=== PATIENT | male | born 1975 | race American Indian/Alaskan Native ===

== ENCOUNTER 2020-01-31 10:13 | Emergency (ER) | payer OTHER ==
[2020-01-31 10:36] LABS: Hematocrit 48.6 % (35.5-45.6); Mean Corpuscular HGB Conc 35 % (32-34); Mean Corpuscular Volume 90 fl (84-94); Platelet Count 160 K/mm3 (140-440); Red Blood Count 5.43 M/mm3 (3.65-5.03); Red Cell Distribution Width 12.8 % (13.2-15.2)
[2020-01-31 10:56] LABS: BUN/Creatinine Ratio 12; Blood Urea Nitrogen 16 mg/dL (9-20); Calcium 9.9 mg/dL (8.4-10.2); Hemolysis Index 20
--- NOTE | 2020-01-31 10:58 | XRay Report ---
CHEST 2 VIEWS INDICATION: Chest Pain. COMPARISON: None. FINDINGS: Support devices: None. Heart: Within normal limits. Lungs/Pleura: No acute air space or interstitial disease. No significant pleural effusion. IMPRESSION: No acute findings. Signer Name: Ashish Morris MD Signed: 01/31/2020 10:54 AM Workstation Name: [id number]
[2020-01-31] MEDS ORDERED: ACETAMINOPHEN 500 MG TAB PO ONE (11:15)
[2020-01-31] MEDS ORDERED: IBUPROFEN 400 MG TAB PO ONE (11:15)
[2020-01-31] MEDS ORDERED: FAMOTIDINE 20 MG TAB PO ONE (11:15)
--- NOTE | 2020-01-31 11:16 | Emergency Department Report ---
ED Chest Pain HPI - General Chief Complaint: Chest Pain Stated Complaint: CHEST PAIN Time Seen by Provider: 01/31/20 10:44 Source: patient Mode of arrival: Ambulatory Limitations: No Limitations - History of Present Illness Initial Comments: Patient is a pleasant 44-year-old gentleman, who is not known to myself previously, his primary care doctor is Dr. Bautista, tomorrow, he is going to see cardiology, Dr. Constance Hodges to have an echocardiogram and a stress test. The patient is HIV positive, on antiviral therapy, denies a history of AIDS defining illnesses. He is right-hand dominant. No recent aspirin consumption. Presents to the ER today with a complaint of reproducible bilateral and central anterior chest wall pain. It started 3 days ago, and is intermittent, after he began gardening, and doing heavy lifting in his backyard. He has not performed these range of motion workouts/exercises in the past. The chest wall pain does not radiate to the back, arms or neck. There is no vomiting or diaphoresis. There is no leg pain, no leg swelling, no recent surgery, and no immobilization. His mother does have a history of DVT in her lower extremity, secondary to cellulitis and possible venous stasis. However, his siblings do not have a history of DVT or pulmonary embolism that he is aware of. He states that he "feels out of shape" because he has not been working out at this time, secondary to the local coronavirus pandemic and plague. He was given Pepcid, Motrin, and acetaminophen in the emergency room, which improved his chest wall pain. MD Complaint: chest pain -: Gradual, days(s) Onset: other Pain Location: left chest, right chest, other Pain Radiation: none Severity: moderate Severity scale (0 -10): 7 Quality: aching Consistency: constant, intermittent Improves With: rest Worsens With: palpation re: other Aspirin use within the Past 7 Days: (0) No - Related Data On Oral Contraceptives: No Allergies Allergy/AdvReac Type Severity Reaction Status Date / Time Sulfa (Sulfonamide Allergy Unknown Verified 01/31/20 10:15 Antibiotics) Heart Score - HEART Score History: Slightly suspicious EKG: Normal Age: < 45 Risk factors: 1-2 risk factors Troponin: < normal limit HEART Score: 1 - Critical Actions Critical Actions: 0-3 pts:0.9-1.7%risk of adverse cardiac event.Candidate for discharge ED Review of Systems ROS: Stated complaint: CHEST PAIN Other details as noted in HPI Constitutional: denies: fever Eyes: denies: eye discharge ENT: denies: epistaxis Respiratory: denies: wheezing Cardiovascular: chest pain Gastrointestinal: denies: nausea, vomiting Genitourinary: as per HPI Musculoskeletal: as per HPI Skin: as per HPI Neurological: as per HPI Psychiatric: as per HPI, anxiety Hematological/Lymphatic: as per HPI ED Past Medical Hx - Past Medical History Previous Medical History?: No - Surgical History Past Surgical History?: No - Social History Smoking Status: Never Smoker Substance Use Type: None ED Physical Exam - General Limitations: No Limitations General appearance: alert, anxious - Head Head exam: Present: atraumatic, normocephalic - Eye Eye exam: Present: normal appearance, EOMI. Absent: nystagmus - ENT ENT exam: Present: normal exam, normal orophraynx, mucous membranes moist, normal external ear exam - Neck Neck exam: Present: normal inspection, full ROM. Absent: tenderness, meningismus - Respiratory Respiratory exam: Present: normal lung sounds bilaterally, chest wall tenderness. Absent: respiratory distress - Cardiovascular Cardiovascular Exam: Present: normal rhythm, bradycardia, normal heart sounds. Absent: systolic murmur, diastolic murmur, rubs, gallop - GI/Abdominal GI/Abdominal exam: Present: soft. Absent: distended, tenderness, guarding, rebound, rigid, pulsatile mass - Rectal Rectal exam: Present: deferred - Extremities Exam Extremities exam: Present: normal inspection, full ROM, other (2+ pulses noted in the bilateral upper and lower extremities. There is no palpable cord. negative Homans sign. Muscular compartments are soft. The pelvis is stable.). Absent: pedal edema, calf tenderness - Back Exam Back exam: Present: normal inspection, full ROM. Absent: tenderness, CVA tenderness (R), CVA tenderness (L), paraspinal tenderness, vertebral tenderness - Neurological Exam Neurological exam: Present: alert, oriented X3, normal gait, other (No facial droop. Tongue midline. Extraocular movements intact bilaterally. Facial sensation intact to light touch in V1, V2, V3 distribution bilaterally. 5 and a 5 strength in 4 extremities. Sensation intact to light touch in 4 extremities.). Absent: motor sensory deficit - Psychiatric Psychiatric exam: Present: anxious - Skin Skin exam: Present: warm, dry, intact, normal color. Absent: rash ED Course Vital Signs 01/31/20 01/31/20 10:32 11:19 Temperature 98.1 F Pulse Rate 56 L 54 L Respiratory 16 Rate Blood Pressure 106/70 115/45 [Right] O2 Sat by Pulse 100 Oximetry - Reevaluation(s) Reevaluation #1: 01/31/20 12:44 Mild leukopenia reviewed and appreciated, this is likely secondary to HIV. This is asymptomatic, incidental, nonemergent, and can be followed up by his outpatient primary care doctor or infectious disease specialist. Reevaluation #2: 01/31/20 12:50 Feeling improved. Playing on cellular phone. No acute distress. EDMOND score - Edmond Score Age > 65: (0) No Aspirin use within the Past 7 Days: (0) No 3 or more CAD Risk Factors: (0) No 2 or more Angina events in past 24 hrs: (0) No Known CAD with more than 50% Stenosis: (0) No Elevated Cardiac Markers: (0) No ST Deviation Greater than 0.5mm: (0) No EDMOND Score: 0 ED Medical Decision Making - Lab Data Result diagrams: 01/31/20 10:23 01/31/20 10:23 Vital Signs 01/31/20 01/31/20 10:32 11:19 Temperature 98.1 F Pulse Rate 56 L 54 L Respiratory 16 Rate Blood Pressure 106/70 115/45 [Right] O2 Sat by Pulse 100 Oximetry Lab Results 01/31/20 01/31/20 Range/Units 10:23 10:23 WBC 3.2 L (4.5-11.0) K/mm3 RBC 5.43 H (3.65-5.03) M/mm3 Hgb 17.0 H (11.8-15.2) gm/dl Hct 48.6 H (35.5-45.6) % MCV 90 (84-94) fl MCH 31 (28-32) pg MCHC 35 H (32-34) % RDW 12.8 L (13.2-15.2) % Plt Count 160 (140-440) K/mm3 Add Manual Diff Complete Total Counted 100 Seg Neuts % (Manual) 47.0 (40.0-70.0) % Band Neutrophils % 0 % Lymphocytes % (Manual) 41.0 H (13.4-35.0) % Reactive Lymphs % (Man) 0 % Monocytes % (Manual) 8.0 H (0.0-7.3) % Eosinophils % (Manual) 4.0 (0.0-4.3) % Basophils % (Manual) 0 (0.0-1.8) % Metamyelocytes % 0 % Myelocytes % 0 % Promyelocytes % 0 % Blast Cells % 0 % Nucleated RBC % Not Reportable Seg Neutrophils # Man 1.5 L (1.8-7.7) K/mm3 Band Neutrophils # 0.0 K/mm3 Lymphocytes # (Manual) 1.3 (1.2-5.4) K/mm3 Abs React Lymphs (Man) 0.0 K/mm3 Monocytes # (Manual) 0.3 (0.0-0.8) K/mm3 Eosinophils # (Manual) 0.1 (0.0-0.4) K/mm3 Basophils # (Manual) 0.0 (0.0-0.1) K/mm3 Metamyelocytes # 0.0 K/mm3 Myelocytes # 0.0 K/mm3 Promyelocytes # 0.0 K/mm3 Blast Cells # 0.0 K/mm3 WBC Morphology Not Reportable Hypersegmented Neuts Not Reportable Hyposegmented Neuts Not Reportable Hypogranular Neuts Not Reportable Smudge Cells Not Reportable Toxic Granulation Not Reportable Toxic Vacuolation Not Reportable Dohle Bodies Not Reportable Pelger-Huet Anomaly Not Reportable Davy Rods Not Reportable Platelet Estimate Consistent w auto Clumped Platelets Not Reportable Plt Clumps, EDTA Not Reportable Large Platelets Not Reportable Giant Platelets Not Reportable Platelet Satelliting Not Reportable Plt Morphology Comment Not Reportable RBC Morphology Normal Dimorphic RBCs Not Reportable Polychromasia Not Reportable Hypochromasia Not Reportable Poikilocytosis Not Reportable Anisocytosis Not Reportable Microcytosis Not Reportable Macrocytosis Not Reportable Spherocytes Not Reportable Pappenheimer Bodies Not Reportable Sickle Cells Not Reportable Target Cells Not Reportable Tear Drop Cells Not Reportable Ovalocytes Not Reportable Helmet Cells Not Reportable Ward-Strum Bodies Not Reportable [place] Rings Not Reportable [place] Cells Not Reportable Bite Cells Not Reportable Crenated Cell Not Reportable Elliptocytes Not Reportable Acanthocytes (Spur) Not Reportable Rouleaux Not Reportable Hemoglobin C Crystals Not Reportable Schistocytes Not Reportable Malaria parasites Not Reportable Jayden Bodies Not Reportable Hem Pathologist Commnt No Sodium 138 (137-145) mmol/L Potassium 4.7 (3.6-5.0) mmol/L Chloride 100.5 (98-107) mmol/L Carbon Dioxide 24 (22-30) mmol/L Anion Gap 18 mmol/L BUN 16 (9-20) mg/dL Creatinine 1.3 (0.8-1.5) mg/dL Estimated GFR > 60 ml/min BUN/Creatinine Ratio 12 % Glucose 100 (75-100) mg/dL Calcium 9.9 (8.4-10.2) mg/dL Troponin T < 0.010 (0.00-0.029) ng/mL - EKG Data -: EKG Interpreted by Nh EKG shows normal: sinus rhythm Rate: bradycardia - EKG Data When compared to previous EKG there are: previous EKG unavailable 01/31/20 12:34 EKG is unchanged x2. Sinus rhythm, bradycardia, 48 bpm, normal axis, normal intervals, unremarkable EKG, early repolarization findings, not a STEMI. - Radiology Data Radiology results: report reviewed, image reviewed Print Report Referring Physician: SIMON ADDISON Patient Name: HUY SINGH Date of : 1975 Sex: Male Report Date: 2020-01-31 Report Status: Finalized Findings [facility] [address] [place] [address] XRay Report Signed Patient: HUY SINGH MR#: [id number] : 1975 Acct:[id number] Age/Sex: 44 / M ADM Date: 01/31/20 Loc: ED Attending Dr: Ordering Physician: SIMON ADDISON MD Date of Service: 01/31/20 Procedure(s): XR chest routine 2V Accession Number(s): [id number] cc: SIMON ADDISON MD Fluoro Time In Minutes: CHEST 2 VIEWS INDICATION: Chest Pain. COMPARISON: None. FINDINGS: Support devices: None. Heart: Within normal limits. Lungs/Pleura: No acute air space or interstitial disease. No significant pleural effusion. IMPRESSION: No acute findings. Signer Name: Edward Morris MD Signed: 01/31/2020 10:54 AM Workstation Name: [id number] Transcribed By: ES Dictated By: Ashish Morris MD Electronically Authenticated By: Ashish Morris MD Signed Date/Time: 01/31/204 DD/ 1053 - Medical Decision Making Differential diagnosis, including but not limited to: Costochondritis, GERD, gastritis, hiatal hernia, pneumonia, acute coronary syndrome Assessment and plan: 44-year-old gentleman, who is not currently tachycardic, tachypneic or hypoxic, low risk by Wells criteria, perc negative, EKG unchanged x2, with reproducible chest wall pain, in the context of performing of vigorous physical activity outside his backyard. Patient at low risk for major adverse cardiac event. 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 Laboratory studies unremarkable, troponin negative x1, symptoms present for 72 hours, as per the [employer] clinical policy, myocardial infarction may be ruled out with 1 set of cardiac enzymes if symptoms were present for greater than 8 hours. Return precautions are reviewed with the patient, I discussed the significance of his laboratory findings, EKG and x-ray, and emphasized the need to follow-up as an outpatient. Critical care attestation.: If time is entered above; I have spent that time in minutes in the direct care of this critically ill patient, excluding procedure time. ED Disposition Clinical Impression: Chest wall pain Disposition: DC-01 TO HOME OR SELFCARE Is pt being admited?: No Does the pt Need Aspirin: No Condition: Stable Instructions: Costochondritis (ED) Additional Instructions: Participate in physical activities as tolerated. Patient may take ibuprofen, 400 mg by mouth with food, every 6 hours, alternating with Tylenol, 650 mg by mouth, every 4-6 hours as needed for pain. Please continue current outpatient medications. Please follow-up with your steam fitter supervisor maintenance tomorrow as scheduled. Return to the emergency room right away with new, worsened or different symptoms, or symptoms not present on the initial emergency room evaluation. Do not touch hands to face, eyes or mouth, take a bath or shower with soap as soon as you get home, and wash all clothing with water and soap as soon as you get home. Referrals: MUNIRA HODGES MD [Staff Physician] - 24 Hours
[2020-01-31 11:19] VITALS: BP 115/45
[2020-01-31 11:37] LABS: Basophils % (Manual) 0 % (0.0-1.8); Platelet Estimate Consistent w Auto; RBC Morphology Normal; Total Cells Counted 100
== END 2020-01-31 13:05 | disposition home or self-care (01) ==
LOC: ED 10:13
DX: R07.89 Other chest pain (principal); Z88.2 Allergy status to sulfonamides
CPT/HCPCS: 36415; 71046; 80048; 84484; 85007; 85025; 93005